=== PATIENT | female | born 1950 | race Caucasian/White ===

== ENCOUNTER 2016-05-10 11:01 | Emergency (ER) | payer MEDICARE ==
[~2016-05-10] VITALS: Ht 154.9 cm; Wt 71.7 kg
[~2016-05-10 11:01] MED LIST: CYCLOBENZAPRINE10 MG ORAL; IBUPROFEN600 MG ORAL; PRILOSEC20 MG ORAL; SYNTHROID88 MCG ORAL; ZANTAC150 MG ORAL
[2016-05-10] MEDS ORDERED: NORCO 5-325 TA1 EACH ORAL (11:49)
[2016-05-10] MEDS ORDERED: IBUPROFEN600 MG ORAL (11:49)
[2016-05-10] MEDS ORDERED: Norco 5mg/325mg tab ORAL ONE (12:00)
[2016-05-10 13:28] VITALS: BP 135/74
--- NOTE | 2016-05-10 13:48 | Diagnostic Imaging Report ---
Indication: Pain 3 views of the left knee were obtained. Findings: No acute fracture, malalignment, or joint effusion are identified. Joint space is relatively well-maintained. Bone mineralization is within normal limits for age. Impression: Negative exam
--- NOTE | 2016-05-10 13:56 | Emergency Room Report ---
History of Present Illness General Chief Complaint: Lower Extremity Injury Source: Patient Present Illness HPI Patient presents with complaint of left knee pain. States that she was turning yesterday when she felt a twisting motion and pop in her left knee, lateral aspect. States the pain was significant and limited her ability to ambulate and mobile mobilize. She has baseline hip arthrituis has received injections of steroids most recently in the last 3 weeks. At [facility]. She contacted her physician, friend of hers who said she should go to the ER and get an MRI. She uses a knee brace at times and has assistive states for ambulation, but does not have a walker, crutches or wheelchair. She states that she is unable to bear on the left leg at this time. She took no medications but she has Lincoln, ibuprofen, Naprosyn at home. Allergies: Coded Allergies: SULFA (SULFONAMIDE ANTIBIOTICS) (Unverified Allergy, Unknown, 09/22/13) Patient History Past Medical History: see triage record Social History: Denies: alcohol use, smoking Immunizations: UTD Reviewed Nursing Documentation: PMH: Agreed Nursing Documentation-[facility] Past Medical History: No History, Except For Hx Cardiac Problems: No - Hypothyroidism Hx Cancer: No Hx Gastrointestinal Problems: Yes Hx Neurological Problems: No Review of Systems Musculoskeletal: Reports: joint pain Physical Exam Vital Signs Date Time Temp Pulse Resp B/P Pulse Ox O2 Delivery O2 Flow Rate FiO2 05/10/16 11:12 98.1 76 16 137/77 99 Room Air Sp02 EP Interpretation: reviewed, normal General Appearance: normal inspection, well appearing, no apparent distress, alert Head: atraumatic Eyes: bilateral eye normal inspection ENT: normal ENT inspection, hearing grossly normal, normal voice Neck: normal inspection, full range of motion, supple, no bony tend Respiratory: normal inspection, lungs clear, normal breath sounds, no respiratory distress, no retraction, no wheezing Cardiovascular #1: regular rate, rhythm, no edema Gastrointestinal: normal inspection, normal bowel sounds, non tender, soft, no guarding, no hernia Genitourinary: no CVA tenderness Musculoskeletal: back normal, normal range of motion, tender - at lateral hamstring insertion, left knee. No effusions no bruising no crepitus, full extension and flexion of the knee. Neurologic: normal inspection, alert, responsive, speech normal Psychiatric: normal inspection, judgement/insight normal, mood/affect normal Skin: normal inspection, normal color, no rash Medical Decision Making Diagnostic Impression: Primary Impression: Injury of lower extremity ER Course Patient here with sudden pain in the left knee which was from a twisting motion , differential could be a meniscal injury versus lateral ligament versus tendon strain. X-rays are within normal limits and patient has reasonable range of motion. She was given pain control as well as crutches and was able to ambulate in the ER. Patient will be discharged referred to followup with her primary DrNickolas for referral for further imaging and possible orthopedic referral, awake counseled the patient I think this is likely a strain in that she should rest the leg and given some time to he'll the patient was very anxious regarding her ability to recover from this. Extensive counseled address her concerns as well as possible. Other X-Ray Diagnostic Results Other X-Ray Diagnostic Results : X-Ray Ordered: left knee Date: May 10, 2016 Time: 12:09 EP Interpretation: No Findings: no fractures, no dislocation, no soft tissue swelling Number of Views: 3 Reevaluation Time: 13:00 Last Vital Signs Date Time Temp Pulse Resp B/P Pulse Ox O2 Delivery O2 Flow Rate FiO2 05/10/16 13:28 98.1 78 17 135/74 99 Room Air Status: improved Disposition: HOME, SELF-CARE Condition: Stable Scripts Ibuprofen* (MOTRIN*) 600 Mg Tablet 600 MG ORAL Q6H Y for For Pain, #30 TAB Prov: Deni Sumner MD 05/10/16 Hydrocodone Bit/Acetaminophen 5-325* (NORCO 5-325*) 1 Each Tablet 1 TAB ORAL Q6H Y for For Pain, #10 TAB 0 Refills Prov: Deni Sumner MD 05/10/16 Referrals: NON PHYSICIAN (PCP) Patient Instructions: Knee Immobilizer, Knee Sprain, [id number], Knee Pain, [id number], How to Use a Knee Brace Additional Instructions: Please use crutches as needed, take medication for pain, elevate and rest the extremity for the next few days, followup with primary doctor or orthopedist if you're having persistent pain and difficulties. Deni Sumner MD May 10, 2016 13:56
== END 2016-05-10 13:30 | disposition home or self-care (01) ==
LOC: EMR 11:50
DX: S89.92XA Unspecified injury of left lower leg, initial encounter (principal); E03.9 Hypothyroidism, unspecified; Z88.2 Allergy status to sulfonamides; M19.90 Unspecified osteoarthritis, unspecified site; X58.XXXA Exposure to other specified factors, initial encounter; Y92.9 Unspecified place or not applicable; Y99.8 Other external cause status
CPT/HCPCS: 29530; 99284

== ENCOUNTER 2019-05-16 13:44 | Outpatient (CLI) | payer MEDICARE ==
[~2019-05-16 13:44] MED LIST changes: +NORCO 5-325 TA1 EACH ORAL
[2019-05-16 14:14] VITALS: BP 119/66
--- NOTE | 2019-05-16 18:30 | Consultation ---
DATE OF CONSULTATION: 05/16/2019 CONSULTING PHYSICIAN: Juan Antonio Mack M.D. CHIEF COMPLAINT: Rectal bleeding. HISTORY OF PRESENT ILLNESS: This is a 69-year-old female with past medical history of hypothyroidism, history of chronic diarrhea. Apparently, had 3 days of severe bleeding, rectal bleeding. The patient states she took a diet pill and symptoms started after that. She had one episode of dizziness, hypertension, sweating, and then the next day she started having bleeding. She was to [facility] emergency room. At [facility], she was offered to have a colonoscopy and CT scan, but she refused. She left AMA. She said her symptoms have started to getting better today and the bleeding is subsiding, but she still having abdominal pain and cramps. PAST MEDICAL HISTORY: 1. Hypothyroidism. 2. Diarrhea. ALLERGIES: No known drug allergies. MEDICATIONS: Please see medication reconciliation list. SOCIAL HISTORY: The patient denies any tobacco, alcohol, or drug abuse. FAMILY HISTORY: Noncontributory. REVIEW OF SYSTEMS: Positive for diarrhea and rectal bleeding. PHYSICAL EXAMINATION: VITAL SIGNS: Temperature 98.2, blood pressure 119/66, pulse is 90, respirations 20. HEENT: Normocephalic and atraumatic. Sclerae icterus. NECK: Supple. No evidence of obvious lymphadenopathy. CARDIOVASCULAR: Regular rate and rhythm. Plus S1 and S2. LUNGS: Clear to auscultation bilaterally. ABDOMEN: Positive bowel sounds. Soft and nontender. No rebound. No guarding. No peritoneal sign. EXTREMITIES: No cyanosis, no clubbing, no edema. ASSESSMENT: The patient is a 69-year-old female with rectal bleeding. Differential diagnosis would be most likely ischemic colitis after being on a diet pill and according to the patient one of the side effects was ischemic colitis and she had one episode of hypertension and diaphoresis, so this is most probably the cause. Other differential diagnosis would be diverticular bleed, hemorrhoidal bleed, AVM so on and so forth. The patient was offered to have a colonoscopy. At this time, she is refusing. The patient is requesting Bentyl for cramps, which was given the prescription for. The patient was given the prescription for colonoscopy and was told to call back if she has kind of recurrent bleeding and to be scheduled for colonoscopy as soon as possible. Otherwise, the patient continues to have a colonoscopy anyway, but at this time again she is refusing. Juan Antonio Mack M.D. DR: SHANNA JOB#: [id number] CC:
== END 2019-05-16 16:20 | disposition home or self-care (01) ==
LOC: PAN 13:44
DX: K62.5 Hemorrhage of anus and rectum (principal); E03.9 Hypothyroidism, unspecified; R19.7 Diarrhea, unspecified; I10 Essential (primary) hypertension
CPT/HCPCS: 99212

== ENCOUNTER 2019-06-05 13:24 | Outpatient (CLI) | payer MEDICARE ==
--- NOTE | 2019-06-05 14:15 | General Progress Note ---
Assessment/Plan Assessment/Plan: wt los 10 ibs loos stools left sided back/side pain seen at an urgent care yesterday on NSAID c/p early satiety, burping ppi cotter CT needs EGD and colonoscopy if above neg Subjective Allergies: Coded Allergies: SULFA (SULFONAMIDE ANTIBIOTICS) (Unverified Allergy, Unknown, 09/22/13) Objective General Appearance: alert EENT: normal ENT inspection Neck: supple Cardiovascular: normal rate Respiratory/Chest: lungs clear Abdomen: non tender, soft, hypoactive bowel sounds Extremities: non-tender Juan Antonio Mack MD Jun 05, 2019 14:15
[2019-06-05 15:06] VITALS: BP 130/64
== END 2019-06-05 15:24 | disposition home or self-care (01) ==
LOC: PAN 13:24
DX: R63.4 Abnormal weight loss (principal); M54.9 Dorsalgia, unspecified; Z88.2 Allergy status to sulfonamides
CPT/HCPCS: 99212

== ENCOUNTER 2019-08-07 12:10 | Outpatient (CLI) | payer MEDICARE ==
[2019-08-07 12:30] VITALS: BP 130/69
[2019-08-07] MEDS ORDERED: PANTOPRAZOLE SO40 MG ORAL (14:27)
[2019-08-07] MEDS ORDERED: FAMOTIDINE20 MG ORAL (14:27)
--- NOTE | 2019-08-07 14:52 | General Progress Note ---
Assessment/Plan Assessment/Plan: sorethroat Assessment/Plan Assessment/Plan: wt los 10 ibs loos stools left sided back/side pain seen at an urgent care yesterday on NSAID c/p early satiety, burping ppi>>>increae to bid add baclofen refuses EGD and colonoscopy cotter CT >>> refuses seen by ENT and refused laryngoscopy Subjective ROS Limited/Unobtainable: Yes Allergies: Coded Allergies: SULFA (SULFONAMIDE ANTIBIOTICS) (Unverified Allergy, Unknown, 09/22/13) Objective General Appearance: alert EENT: normal ENT inspection Neck: supple Cardiovascular: normal rate Respiratory/Chest: lungs clear Abdomen: normal bowel sounds, non tender, soft Juan Antonio Mack MD August 07, 2019 14:52
== END 2019-08-07 14:10 | disposition home or self-care (01) ==
LOC: PAN 12:10
DX: R63.4 Abnormal weight loss (principal); M54.9 Dorsalgia, unspecified; Z88.2 Allergy status to sulfonamides
CPT/HCPCS: 99212